=== PATIENT | female | born 1975 | race Two or more races ===

== ENCOUNTER 2020-05-11 09:36 | Outpatient (REF) | payer OTHER, SELFPAY ==
--- NOTE | 2020-05-11 09:43 | FL_ITS ---
EXAMINATION: FLUOROSCOPY BARIUM SWALLOW CLINICAL INFORMATION: Dysphagia COMPARISON: 04/30/2017 TECHNIQUE: Barium swallow with air. FINDINGS: There is no evidence of aspiration. Normal esophageal motility and distention. No mass or mucosal lesions identified. No stricturing is identified. Patient swallowed a barium tablet, which demonstrates normal passage to the stomach. No reflux is seen during the course of the procedure. No hiatal hernia is appreciated. FL/FL barium swallow IMPRESSION: No significant abnormality demonstrated by barium study. Etiology of the patient's symptoms has not been determined by fluoroscopy. Further evaluation with endoscopy as clinically warranted.
== END 2020-05-11 09:37 | disposition home or self-care (01) ==
LOC: HO.XRAY 09:36
PROVIDERS: PCP Internal Medicine; Visit Provider Internal Medicine Endocrinology, Diabetes & Metabolism
DX: R13.19 Other dysphagia (principal)
CPT/HCPCS: 74220

== ENCOUNTER → 2020-05-19 10:17 | Outpatient (BNVA) | payer OTHER, SELFPAY | PROVIDERS: PCP Internal Medicine; Referring Provider Internal Medicine; Visit Provider Nurse Practitioner | DX: Z76.89 Persons encountering health services in other specified circumstances (principal) ==

== ENCOUNTER 2020-06-28 13:43 | Emergency (ER) | payer OTHER, SELFPAY ==
[2020-06-28 14:15] VITALS: BP 103/48; PULSE 106; RESP 16; TEMP 36.8; O2SAT 99; BMI 34.5
[2020-06-28] MEDS: Lidocaine HCl 1 % MPF 5 ML VIAL SUBCUT ×4 (15:02→15:03)
--- NOTE | 2020-06-28 15:32 | ED.SKABFB ---
HPI - Skin/Abscess/Foreign Bdy General Chief complaint: Skin/Abscess/Foreign Body Stated complaint: wound/rash on abd Time Seen by Provider: 06/28/20 14:52 History of Present Illness HPI narrative: Patient complains of abdominal abscess for 3-4 days that is painful and swollen no fever no chills no other complaints Related Data Home Medications Medication Instructions Recorded Confirmed citalopram 40 mg tablet 40 mg PO DAILY 06/27/20 06/27/20 clonidine HCl 0.1 mg tablet mg PO 06/27/20 06/27/20 cyanocobalamin (vitamin B-12) 1,000 mcg PO DAILY 06/27/20 06/27/20 1,000 mcg tablet hydroxyzine HCl 25 mg tablet 25 mg PO BID 06/27/20 06/27/20 montelukast 10 mg tablet 10 mg PO DAILY 06/27/20 06/27/20 zolpidem 10 mg tablet 10 mg PO BEDTIME PRN 06/27/20 06/27/20 Previous Rx's Medication Instructions Recorded [id number] 1 cap PO QID 30 Days #120 cap 06/01/20 24,000-76,000-120,000 unit capsule,delayed rel prednisone 20 mg tablet 20 mg PO DAILY 5 Days #5 tab 06/01/20 sucralfate 100 mg/mL oral 30 ml PO BID #420 ml 06/01/20 suspension cholecalciferol (vitamin D3) 125 125 mcg PO DAILY #30 cap 06/27/20 mcg (5,000 unit) capsule omeprazole 20 mg capsule,delayed 20 mg PO DAILY #30 cap 06/27/20 release clindamycin HCl 300 mg PO Q6H 7 Days #28 cap 06/28/20 doxycycline hyclate 100 mg PO BID 7 Days #14 cap 06/28/20 hydrocodone-acetaminophen 1 tab PO Q6H PRN #10 tab 06/28/20 ibuprofen 600 mg PO Q6H PRN #20 tab 06/28/20 Allergies Allergy/AdvReac Type Severity Reaction Status Date / Time Penicillins [PENICILLINS] Allergy Severe ANAPHYLAXIS Verified 06/27/20 15:11 latex [LATEX] Allergy Intermediate RASH Verified 06/27/20 15:11 pollen Allergy Unknown asthma Uncoded 06/01/20 17:17 Review of Systems Review of Systems: No fever no chills no dizziness no weakness no nausea no vomiting no chest pain no shortness of breath no other rash PMFSH Past Medical History Source: nursing notes reviewed Medical History Shortness of breath Voice hoarseness Surgical History History of esophagogastroduodenoscopy (EGD) Hx of cholecystectomy Hx of colonoscopy Hx of oral surgery (07/23/18) Hx of tubal ligation Family History Family History Father Unknown family medical history Mother Unknown family medical history Social History Social History Alcohol intake: current Alcohol intake frequency: holidays/special occasions only Smoking Status: Former smoker Tobacco Type: Cigarette Advance Directives: No Advance Directives Information Provided: No Physical Exam Vital Signs: Vital Signs: Last Vital Signs Temp 98.3 F 06/28/20 14:15 Pulse 106 H 06/28/20 14:15 Resp 16 06/28/20 14:15 BP 103/48 L 06/28/20 14:15 Pulse Ox 99 06/28/20 14:15 Body Mass Index 34.5 General appearance is comfortable no acute distress Normocephalic atraumatic Neck is supple Respiratory no acute distress The right mid abdomen has a central area of fluctuance redness and tenderness surrounded by erythema and cellulitis, there is no rebound no guarding no other abdominal tenderness Skin no other rash Neuro no focal deficits Course Course Course Narrative: Procedure no right abdominal abscess was cleansed with Betadine Anesthesia was 10 cc of 1% lidocaine Pus was aspirated with an 18 gauge needle then the abscess was incised with an 11 blade with discharge of copious pus and packing was placed Patient tolerated procedure well and bandage was placed and she was discharged Discharge Plan Discharge Clinical Impression: Abscess Cellulitis Qualifiers: Site of cellulitis: trunk Site of cellulitis of trunk: abdominal wall Qualified Code(s): L03.311 - Cellulitis of abdominal wall Additional Instructions: Return to ER in 2 days for packing removal, wound check Return any time for worse pain and swelling, fever, spreading redness, any sign of worsening infection or any concerns Prescriptions: New doxycycline hyclate 100 mg capsule 100 mg PO BID 7 Days Qty: 14 RF: 0 ibuprofen 600 mg tablet 600 mg PO Q6H PRN (Reason: pain) Qty: 20 RF: 0 hydrocodone-acetaminophen 5-325 mg tablet 1 tab PO Q6H PRN (Reason: pain) Qty: 10 RF: 0 clindamycin HCl 300 mg capsule 300 mg PO Q6H 7 Days Qty: 28 RF: 0 No Action cholecalciferol (vitamin D3) 125 mcg (5,000 unit) capsule 125 mcg PO DAILY Qty: 30 RF: 3 omeprazole 20 mg capsule,delayed release(DR/EC) 20 mg PO DAILY Qty: 30 RF: 0 clonidine HCl 0.1 mg tablet PO RF: 0 citalopram 40 mg tablet 40 mg PO DAILY RF: 0 cyanocobalamin (vitamin B-12) 1,000 mcg tablet 1,000 mcg PO DAILY RF: 0 montelukast 10 mg tablet 10 mg PO DAILY RF: 0 hydroxyzine HCl 25 mg tablet 25 mg PO BID RF: 0 zolpidem 10 mg tablet 10 mg PO BEDTIME PRNRF: 0 Creon 24,000-76,000 -120,000 unit capsule,delayed release(DR/EC) 1 cap PO QID 30 Days Qty: 120 RF: 6 sucralfate [Carafate] 100 mg/mL suspension 30 ml PO BID Qty: 420 RF: 6 prednisone 20 mg tablet 20 mg PO DAILY 5 Days Qty: 5 RF: 0
== END 2020-06-28 16:00 | disposition home or self-care (01) ==
PROVIDERS: Emergency Provider Emergency Medicine Emergency Medical Services; PCP Internal Medicine
DX: L03.311 Cellulitis of abdominal wall (principal); Z87.891 Personal history of nicotine dependence; Z79.899 Other long term (current) drug therapy
CPT/HCPCS: 10060; 99283; 99284

== ENCOUNTER → 2020-06-30 08:34 | Outpatient (BNVA) | payer OTHER, SELFPAY | PROVIDERS: PCP Internal Medicine; Visit Provider Nurse Practitioner | DX: Z76.89 Persons encountering health services in other specified circumstances (principal) ==

== ENCOUNTER 2020-06-30 19:47 | Emergency (ER) | payer OTHER, SELFPAY ==
[2020-06-30 20:01] VITALS: BP 94/35; PULSE 86; RESP 16; TEMP 36.9; O2SAT 100; BMI 41.2
[2020-06-30 20:11] VITALS: BP 120/62; PULSE 86
--- NOTE | 2020-06-30 20:16 | ED.SKABFB ---
HPI - Skin/Abscess/Foreign Bdy General Chief complaint: Skin/Abscess/Foreign Body Stated complaint: SUTURE REMOVAL Time Seen by Provider: 06/30/20 20:16 Source: patient Mode of arrival: ambulatory Limitations: no limitations History of Present Illness HPI narrative: on antibiotics, here for packing assessment, pain and erythema improved, 4 more days of antibiotics left MD complaint: abscess/boil Onset (ago): week(s) (2) Tetanus up to date: yes Location: generalized (abdomen) Severity: moderate Quality: aching Pain Consistency: constant Relieving factors: none Exacerbating factors: none Context: recent antibiotic Associated symptoms: denies other symptoms Treatments prior to arrival: other (on antibiotics and s/p ID) Related Data Home Medications Medication Instructions Recorded Confirmed citalopram 40 mg tablet 40 mg PO DAILY 06/27/20 06/27/20 clonidine HCl 0.1 mg tablet mg PO 06/27/20 06/27/20 cyanocobalamin (vitamin B-12) 1,000 mcg PO DAILY 06/27/20 06/27/20 1,000 mcg tablet hydroxyzine HCl 25 mg tablet 25 mg PO BID 06/27/20 06/27/20 montelukast 10 mg tablet 10 mg PO DAILY 06/27/20 06/27/20 zolpidem 10 mg tablet 10 mg PO BEDTIME PRN 06/27/20 06/27/20 Previous Rx's Medication Instructions Recorded [id number] 1 cap PO QID 30 Days #120 cap 06/01/20 24,000-76,000-120,000 unit capsule,delayed rel prednisone 20 mg tablet 20 mg PO DAILY 5 Days #5 tab 06/01/20 sucralfate 100 mg/mL oral 30 ml PO BID #420 ml 06/01/20 suspension cholecalciferol (vitamin D3) 125 125 mcg PO DAILY #30 cap 06/27/20 mcg (5,000 unit) capsule omeprazole 20 mg capsule,delayed 20 mg PO DAILY #30 cap 06/27/20 release clindamycin HCl 300 mg PO Q6H 7 Days #28 cap 06/28/20 doxycycline hyclate 100 mg PO BID 7 Days #14 cap 06/28/20 hydrocodone-acetaminophen 1 tab PO Q6H PRN #10 tab 06/28/20 ibuprofen 600 mg PO Q6H PRN #20 tab 06/28/20 simethicone 180 mg capsule 180 mg PO QID 30 Days #120 cap 06/30/20 Allergies Allergy/AdvReac Type Severity Reaction Status Date / Time Penicillins [PENICILLINS] Allergy Severe ANAPHYLAXIS Verified 06/30/20 08:35 latex [LATEX] Allergy Intermediate RASH Verified 06/30/20 08:35 pollen Allergy Unknown asthma Uncoded 06/01/20 17:17 Review of Systems Review of Systems: Constitutional : No Fever, No Chills ENT/Mouth : No sore throat, No Rhinorrhea Eyes: No Eye Pain, No Swelling, No Redness Cardiovascular : No Chest Pain, No SOB Respiratory : No Cough, No Sputum Gastrointestinal : No Nausea, No Vomiting, No Diarrhea, No abdominal Pain Genitourinary : No Dysuria, No Hematuria Musculoskeletal : No joint pain, No Myalgias, No Joint Swelling Skin : No Skin Lesions, positive skin rash Neuro : No Weakness, No Numbness, No Headache Psych : No Anxiety, No Depression Heme/Lymph: No Bruising, No Bleeding,No Lymphadenopathy Endocrine : No Polyuria, No Polydipsia All other systems reviewed and are negative [facility] Past Medical History Attestation statement: The following information was validated with the patient. Medical History Shortness of breath Voice hoarseness Surgical History History of esophagogastroduodenoscopy (EGD) Hx of cholecystectomy Hx of colonoscopy Hx of oral surgery (07/23/18) Hx of tubal ligation Family History Family History Father Unknown family medical history Mother Unknown family medical history Social History Social History Alcohol intake: current Alcohol intake frequency: holidays/special occasions only Smoking Status: Former smoker Tobacco Type: Cigarette Advance Directives: No Physical Exam Vital Signs: Vital Signs: Last Vital Signs Temp 98.4 F 06/30/20 20:01 Pulse 86 06/30/20 20:11 Resp 16 06/30/20 20:01 BP 120/62 06/30/20 20:11 Pulse Ox 100 06/30/20 20:01 Body Mass Index 41.2 Appearance: Alert. Oriented X3. No acute distress. Eyes: Pupils equal, round and reactive to light. ENT: Pharynx normal. Neck: Normal inspection. Neck supple. CVS: Normal heart rate and rhythm. Pulses normal. Respiratory: No respiratory distress. Breath sounds normal. Abdomen: Soft and R lower abdomen draining ss open area noted with tense wound borders, no purulence, erythema extends from right lower abdomen mild erythema mild warmth 8cm Skin: Skin warm and dry. Normal skin color. Normal skin turgor. Extremities: No lower extremity edema. No calf ttp Neuro: Oriented X 3. No motor deficit. No sensory deficit. MDM - Skin/Abscess/Foreign Bdy MDM Narrative Medical decision making narrative: 44 yo female doing well post I/D of abscess has 4 more days of antibiotics, she denies fevers, states her cellulitis is improving, removed packing and irrigated area given precautions to return Discharge Plan Discharge Clinical Impression: Cellulitis Qualifiers: Site of cellulitis: trunk Site of cellulitis of trunk: abdominal wall Qualified Code(s): L03.311 - Cellulitis of abdominal wall Abscess of skin or subcutaneous tissue Qualifiers: Site of cutaneous abscess: trunk Site of cutaneous abscess of trunk: abdominal wall Qualified Code(s): L02.211 - Cutaneous abscess of abdominal wall Patient Disposition: Home, Self-Care Instructions: Cellulitis (ED), Abscess (ED) Additional Instructions: return to ED for any worsening symptoms or concerns FINISH ALL ANTIBIOTICS Prescriptions: No Action cholecalciferol (vitamin D3) 125 mcg (5,000 unit) capsule 125 mcg PO DAILY Qty: 30 RF: 3 omeprazole 20 mg capsule,delayed release(DR/EC) 20 mg PO DAILY Qty: 30 RF: 0 doxycycline hyclate 100 mg capsule 100 mg PO BID 7 Days Qty: 14 RF: 0 ibuprofen 600 mg tablet 600 mg PO Q6H PRN (Reason: pain) Qty: 20 RF: 0 hydrocodone-acetaminophen 5-325 mg tablet 1 tab PO Q6H PRN (Reason: pain) Qty: 10 RF: 0 clindamycin HCl 300 mg capsule 300 mg PO Q6H 7 Days Qty: 28 RF: 0 clonidine HCl 0.1 mg tablet PO RF: 0 citalopram 40 mg tablet 40 mg PO DAILY RF: 0 cyanocobalamin (vitamin B-12) 1,000 mcg tablet 1,000 mcg PO DAILY RF: 0 montelukast 10 mg tablet 10 mg PO DAILY RF: 0 hydroxyzine HCl 25 mg tablet 25 mg PO BID RF: 0 zolpidem 10 mg tablet 10 mg PO BEDTIME PRNRF: 0 Creon 24,000-76,000 -120,000 unit capsule,delayed release(DR/EC) 1 cap PO QID 30 Days Qty: 120 RF: 6 sucralfate [Carafate] 100 mg/mL suspension 30 ml PO BID Qty: 420 RF: 6 prednisone 20 mg tablet 20 mg PO DAILY 5 Days Qty: 5 RF: 0 simethicone 180 mg capsule 180 mg PO QID 30 Days Qty: 120 RF: 3 Referrals: Amish Pina MD [Physician] - 5 days Gloria Arthur MD [Primary Care Provider] - 3 days Print Language: Montserratian
--- NOTE | 2020-06-30 20:22 | PC.NURSE ---
PT EVALED BY DR KAY. PACKING REMOVED. 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 PT REPORTS REDNESS IS IMPROVED. WOUND IRRIGATED BY PROVIDER. TELFA AND ABD APPLIED.
== END 2020-06-30 20:36 | disposition home or self-care (01) ==
PROVIDERS: Emergency Provider Emergency Medicine; PCP Internal Medicine
DX: Z48.02 Encounter for removal of sutures (principal)
CPT/HCPCS: 99283

== ENCOUNTER → 2020-07-06 11:23 | Outpatient (BNVA) | payer OTHER, SELFPAY | PROVIDERS: PCP Internal Medicine; Visit Provider Surgery | DX: L02.91 Cutaneous abscess, unspecified (principal) | CPT/HCPCS: 99202 ==

== ENCOUNTER → 2020-07-08 12:43 | Outpatient (BNVA) | payer OTHER, SELFPAY | PROVIDERS: PCP Internal Medicine; Visit Provider Surgery | DX: Z48.817 Encounter for surgical aftercare following surgery on the skin and subcutaneous tissue (principal); Z87.2 Personal history of diseases of the skin and subcutaneous tissue | CPT/HCPCS: 99212 ==

== ENCOUNTER → 2020-07-13 14:21 | Outpatient (BNVA) | payer OTHER, SELFPAY | PROVIDERS: PCP Internal Medicine; Visit Provider Surgery | DX: L02.91 Cutaneous abscess, unspecified (principal) | CPT/HCPCS: 99212 ==

== ENCOUNTER → 2020-07-27 09:02 | Outpatient (BNVA) | payer OTHER, SELFPAY | PROVIDERS: PCP Internal Medicine; Visit Provider Surgery | DX: L02.91 Cutaneous abscess, unspecified (principal) | CPT/HCPCS: 99212 ==

== ENCOUNTER → 2020-09-23 08:41 | Outpatient (BNVA) | payer OTHER, SELFPAY | PROVIDERS: PCP Internal Medicine; Visit Provider Internal Medicine Endocrinology, Diabetes & Metabolism ==

== ENCOUNTER 2020-10-04 13:34 | Outpatient (REF) | payer OTHER, SELFPAY ==
--- NOTE | ~2020-10-04 | US_ITS ---
EXAMINATION: US THYROID CLINICAL INFORMATION: Nontoxic multinodular goiter COMPARISON: Previous exam most recent May 2019 TECHNIQUE: Linear transducer grayscale and color Doppler examination with attention to the region of the thyroid. FINDINGS: SIZE: Measurements of the thyroid lobes and nodules are given in sagittal, anteroposterior and transverse dimensions respectively. Right Thyroid Lobe: 4.9 x 1.1 x 1.3 cm, volume 3.7 mL. Parenchyma: The gland echotexture is normal. Thyroid vascularity is normal. Left Thyroid Lobe: 4.7 x 0.9 x 1.6 cm, volume 3.5 mL. Parenchyma: The gland echotexture is normal. Thyroid vascularity is normal. Isthmus: 0.3 cm in maximum AP dimension. Estimated total number of nodules greater than or equal to 1 cm: None. [place] nodules are described as follows: 1. Location: Right mid. Size: 0.5 x 0.2 x 0.4 cm, volume 0.02 mL. Nodule characteristics: Composition: Solid (2). Echogenicity: Isoechoic (1). Shape: Not taller than wide (0). Margins: Smooth (0). Echogenic Foci: None (0). ACR TI-RADS total points: 3 ACR TI-RADS category: 3 There are 2 small cysts seen in the posterior mid left lobe. NODES: No lymphadenopathy is seen in the tissue surrounding the thyroid gland. US/US thyroid IMPRESSION: Small right thyroid nodule. ACR TI-RADS RECOMMENDATION REFERENCE: Ultrasound-guided fine-needle aspiration, followup ultrasound, no further follow up. * TR1 (0 point) and TR 2 (2 points): No FNA or follow up * TR3 (3 points): FNA if more than or equal to 2.5 cm in maximum dimension, followup ultrasound in 1, 3 and 5 years if 1.5 to 2.4 cm in maximum dimension. * TR4 (4-6 points): FNA if more than or equal to 1.5 cm in maximum dimension, followup ultrasound in 1, 2, 3 and 5 years if 1 to 1.4 cm in maximum dimension. * TR5 (more than or equal to 7 points): FNA if more than or equal to 1 cm in maximum dimension, followup ultrasound every year for 5 years if 0.5 to 0.9 cm in maximum dimension. * TR3, TR4 or TR5 nodules that are below the size threshold for follow up receive no follow up.
== END 2020-10-04 13:35 | disposition home or self-care (01) ==
LOC: HO.US 13:34
PROVIDERS: Visit Provider Internal Medicine Endocrinology, Diabetes & Metabolism
DX: E04.2 Nontoxic multinodular goiter (principal)
CPT/HCPCS: 76536

== ENCOUNTER 2020-11-06 18:15 | Emergency (ER) | payer OTHER, SELFPAY ==
[2020-11-06 18:25] VITALS: BP 127/99; PULSE 100; RESP 18; TEMP 36.8; O2SAT 99; BMI 34.7
--- NOTE | 2020-11-06 19:56 | ED.GENADULT ---
HPI - General Adult General Chief complaint: General Medical Stated complaint: joint pain Time Seen by Provider: 11/06/20 19:53 Source: patient Mode of arrival: ambulatory History of Present Illness HPI narrative: 44-year-old female with a past medical history of asthma, B12 deficiency, vitamin-D deficiency, presenting to the ED complaining of bilateral heel pain x 6 days, and right groin pain x3 days. Admits heel pain is radiating up leg to groin, worse on right side. Does report recent heavy lifting. Denies known injury/trauma or falls. Denies fever, chills, numbness, tingling, weakness, dysuria/hematuria, abdominal pain Onset (ago): day(s) Related Data Home Medications Medication Instructions Recorded Confirmed citalopram 40 mg tablet 40 mg PO DAILY 06/27/20 09/23/20 clonidine HCl 0.1 mg tablet mg PO 06/27/20 09/23/20 hydroxyzine HCl 25 mg tablet 25 mg PO BID 06/27/20 09/23/20 montelukast 10 mg tablet 10 mg PO DAILY 06/27/20 09/23/20 zolpidem 10 mg tablet 10 mg PO BEDTIME PRN 06/27/20 09/23/20 prednisone 20 mg tablet 20 mg PO DAILY tab 09/23/20 09/23/20 Previous Rx's Medication Instructions Recorded [id number] 1 cap PO QID 30 Days #120 cap 06/01/20 24,000-76,000-120,000 unit capsule,delayed rel sucralfate 100 mg/mL oral 30 ml PO BID #420 ml 06/01/20 suspension hydrocodone-acetaminophen 1 tab PO Q6H PRN #10 tab 06/28/20 ibuprofen 600 mg PO Q6H PRN #20 tab 06/28/20 simethicone 180 mg capsule 180 mg PO QID 30 Days #120 cap 06/30/20 doxycycline hyclate 100 mg capsule 100 mg PO BID 7 Days #14 cap 07/08/20 silver-hydrocolloid dressing 1.2 1 ea TOPICAL Q OTHER DAY #10 ea 07/13/20 %-3.5 X 4 omeprazole 20 mg capsule,delayed 20 mg PO DAILY #30 cap 07/28/20 release cholecalciferol (vitamin D3) 125 125 mcg PO DAILY 90 Days #90 cap 09/23/20 mcg (5,000 unit) capsule cyanocobalamin (vitamin B-12) 1,000 mcg PO DAILY 90 Days #90 tab 09/23/20 1,000 mcg tablet acetaminophen [Tylenol Extra 500 mg PO Q6H PRN #20 tab 11/06/20 Strength] cyclobenzaprine 5 mg PO Q8H PRN 5 Days #14 tab 11/06/20 lidocaine [Lidoderm] 1 patch TOPICAL DAILY PRN #30 ea 11/06/20 MDD remove after 12 hours naproxen 500 mg PO BID PRN 10 Days #20 tab 11/06/20 Allergies Allergy/AdvReac Type Severity Reaction Status Date / Time Penicillins [PENICILLINS] Allergy Severe ANAPHYLAXIS Verified 11/06/20 18:24 latex [LATEX] Allergy Intermediate RASH Verified 11/06/20 18:24 pollen Allergy Unknown asthma Uncoded 06/01/20 17:17 Review of Systems Review of Systems: Constitutional: No Fever, No Chills Cardiovascular: No Chest Pain, No SOB Gastrointestinal: No Nausea, No Vomiting, No Abdominal pain Genitourinary: No irregular bleeding, No Dysuria, No Urinary Frequency, No Hematuria,No Urgency Musculoskeletal: +joint pain, No Myalgias, No Joint Swelling Skin: No Skin Lesions, No rash Neuro: No Weakness, No Numbness, No Paresthesias Yes all other systems are reviewed and are negative [facility] Past Medical History Attestation statement: The following information was validated with the patient. Medical History (Updated 11/06/20 @ 19:56 by EMMY Archer) Abscess of hip Asthma B12 deficiency Dental root implant present Non-toxic multinodular goiter Shortness of breath Vitamin D deficiency Voice hoarseness Surgical History (Updated 11/06/20 @ 18:30 by Makayla Elkins RN) History of esophagogastroduodenoscopy (EGD) Hx of cholecystectomy Hx of colonoscopy Hx of oral surgery (07/23/18) Hx of tubal ligation S/P cholecystectomy Family History Family History Father Unknown family medical history Mother Unknown family medical history Social History Social History Alcohol intake: current Alcohol intake frequency: holidays/special occasions only Smoking Status: Former smoker Tobacco Type: Cigarette Advance Directives: No Advance Directives Information Provided: Yes Patient : No Physical Exam Vital Signs: Vital Signs: Last Vital Signs Temp 98.2 F 11/06/20 18:25 Pulse 100 11/06/20 18:25 Resp 18 11/06/20 18:25 BP 127/99 H 11/06/20 18:25 Pulse Ox 99 11/06/20 18:25 Body Mass Index 34.7 Const: General: cooperative, healthy appearing, comfortable and no acute distress Orientation/consciousness: patient oriented x3 Limitations: no limitations HENMT: Head: Yes normal to inspection Ears: hearing grossly normal bilaterally General nose exam: Normal external nose present Face and sinus: Yes normal facial exam Eyes: General: appearance normal, both eyes and all related structures EOM: EOMs intact bilaterally Neck: Neck: Yes normal visual inspection Resp: Effort & Inspection: normal respiratory effort Cardio: Rate: regular rate Peripheral pulses: dorsalis pedis present GI: Inspection: Yes normal to inspection Palpation (GI): not soft, Tenderness to palpation present (GI), no guarding and not rigid Skin: Rashes: no rashes Wounds: no wounds Neuro: General: patient oriented x3, tone normal, moves all extremities and no focal motor deficits Gait exam (Neuro): Normal gait present Motor exam (neuro): 5/5 motor strength present throughout Extrem: Other: Bilateral feet without swelling/deformity/erythema. An be intact. Mild tenderness to palpation to bilateral heels. No plantar fascial tenderness. No ankle/knee tenderness. Right groin with tenderness to palpation, no appreciable deformity, tenderness elicited on external rotation of hip General: Yes normal to inspection Medical Decision Making MDM Narrative Medical decision making narrative: 44-year-old female with a past medical history of asthma, B12 deficiency, vitamin-D deficiency, presenting to the ED complaining of bilateral heel pain x 6 days, and right groin pain x3 days. On exam VSS, NAD/well-appearing, physical exam as above. Groin pain consistent with MSK pain/strain. Heel pain concerning for possible bone spur or overuse injury. Unlikely fracture/dislocation. No evidence of active infection Plan: Toradol, PCP/podiatry follow-up Discharge Plan Discharge Clinical Impression: Bilateral foot pain Groin strain Qualifiers: Encounter type: initial encounter Laterality: right Qualified Code(s): S76.211A - Strain of adductor muscle, fascia and tendon of right thigh, initial encounter Patient Disposition: Home, Self-Care Instructions: Groin Strain (ED), Arthralgia (ED) Additional Instructions: Your pain is likely musculoskeletal Flexeril is a muscle relaxer, take at night as it makes you drowsy, do not drive, drink alcohol, or operate machinery while taking it Naproxen as an anti-inflammatory / pain medication, take with food Lidoderm patches are numbing patches, apply to painful area In addition take Tylenol at home If symptoms persist or worsen, pain becomes unbearable, you developed urinary retention or incontinence, or weakness return to the ED You should follow-up with Podiatry. If her symptoms persist or worsen, you have fever, abdominal pain, nausea or vomiting please return to the ED Es probable que siddiqi dolor sea musculoesquel?james Flexeril es un relajante muscular, t?jane por la noche ya que le produce somnolencia, no conduzca, no breanna alcohol ni utilice maquinaria mientras lo migdalia. Naproxeno cassie medicamento antiinflamatorio / analg?sico, macario con alimentos. Los parches de Lidoderm son parches que adormecen, se aplican al ?silvio dolorida Adem?s, tome Tylenol en casa. Si los s?ntomas persisten o empeoran, el dolor se vuelve insoportable, desarroll? retenci?n urinaria o incontinencia o debilidad, regrese al servicio de urgencias Debe hacer un seguimiento con Podolog?a. Si fran s?ntomas persisten o empeoran, tiene fiebre, dolor abdominal, n?useas o v?mitos, vuelva al servicio de urgencias. Prescriptions: New acetaminophen [Tylenol Extra Strength] 500 mg tablet 500 mg PO Q6H PRN (Reason: pain or fever) Qty: 20 RF: 0 lidocaine [Lidoderm] 5 % adhesive patch,medicated 1 patch topical DAILY MDD remove after 12 hours PRN (Reason: pain) Qty: 30 RF: 0 naproxen 500 mg tablet 500 mg PO BID PRN (Reason: pain) 10 Days Qty: 20 RF: 0 cyclobenzaprine 5 mg tablet 5 mg PO Q8H PRN (Reason: pain (scale score 7-10)) 5 Days Qty: 14 RF: 0 No Action omeprazole 20 mg capsule,delayed release(DR/EC) 20 mg PO DAILY Qty: 30 RF: 1 ibuprofen 600 mg tablet 600 mg PO Q6H PRN (Reason: pain) Qty: 20 RF: 0 hydrocodone-acetaminophen 5-325 mg tablet 1 tab PO Q6H PRN (Reason: pain) Qty: 10 RF: 0 clonidine HCl 0.1 mg tablet PO RF: 0 citalopram 40 mg tablet 40 mg PO DAILY RF: 0 montelukast 10 mg tablet 10 mg PO DAILY RF: 0 hydroxyzine HCl 25 mg tablet 25 mg PO BID RF: 0 zolpidem 10 mg tablet 10 mg PO BEDTIME PRNRF: 0 Creon 24,000-76,000 -120,000 unit capsule,delayed release(DR/EC) 1 cap PO QID 30 Days Qty: 120 RF: 6 sucralfate [Carafate] 100 mg/mL suspension 30 ml PO BID Qty: 420 RF: 6 doxycycline hyclate 100 mg capsule 100 mg PO BID 7 Days Qty: 14 RF: 0 prednisone 20 mg tablet 20 mg PO DAILY RF: 0 cyanocobalamin (vitamin B-12) 1,000 mcg tablet 1,000 mcg PO DAILY 90 Days Qty: 90 RF: 1 cholecalciferol (vitamin D3) 125 mcg (5,000 unit) capsule 125 mcg PO DAILY 90 Days Qty: 90 RF: 1 simethicone 180 mg capsule 180 mg PO QID 30 Days Qty: 120 RF: 3 Aquacel-AG 1.2-3.5 X 4 %- bandage 1 ea topical Q OTHER DAY Qty: 10 RF: 0 Referrals: Amish Faustin [Physician] - 1 week Physician,Unknown [Primary Care Provider] - 2 days Print Language: Nicaraguan
[2020-11-06] MEDS: Ketorolac Tromethamine 30 MG/ML VIAL IM (20:07)
== END 2020-11-06 20:23 | disposition home or self-care (01) ==
PROVIDERS: Emergency Provider Emergency Medicine
DX: S76.211A Strain of adductor muscle, fascia and tendon of right thigh, initial encounter (principal); M79.672 Pain in left foot; M79.671 Pain in right foot; R10.30 Lower abdominal pain, unspecified; X50.0XXA Overexertion from strenuous movement or load, initial encounter; X50.3XXA Overexertion from repetitive movements, initial encounter; X50.9XXA Other and unspecified overexertion or strenuous movements or postures, initial encounter; Y93.9 Activity, unspecified; Y92.9 Unspecified place or not applicable; Y99.9 Unspecified external cause status; Z79.899 Other long term (current) drug therapy; Z87.891 Personal history of nicotine dependence
CPT/HCPCS: 96372; 99284; J1885

== ENCOUNTER 2020-12-29 09:18 | Outpatient (REF) | payer OTHER, SELFPAY ==
[2020-12-29 10:31] LABS: Alanine Aminotransferase 40 U/L (0-31); Albumin Level 3.9 g/dL (3.5-5.0); Alkaline Phosphatase 128 U/L (39-117); Anion Gap 11 (12-20); Aspartate Amino Transferase 40 U/L (5-31); Bilirubin Total 0.3 mg/dL (0.0-1.0); Blood Urea Nitrogen 10 mg/dL (9-16); Calcium 8.8 mg/dL (8.4-10.2); Carbon Dioxide 24 mmol/L (22-29); Chloride 106 mmol/L (96-108); Cholesterol 190 mg/dL; Estimated Glomerular Filt Rate > 60; Glucose Fasting 113 mg/dL (60-99); HDL Cholesterol 44 mg/dL; LDL Cholesterol Calculated 107 mg/dl; Potassium 4.4 mmol/L (3.3-5.1); Sodium 137 mmol/L (135-145); Total Protein 6.5 g/dL (6.5-8.0); Triglycerides 196 mg/dL
[2020-12-29 10:51] LABS: Free T4 (Free Thyroxine) 0.81 ng/dL (0.71-1.85); Vitamin D 25-OH Total 28.9 ng/mL (>30)
[2020-12-29 10:55] LABS: Thyroid Stimulating Hormone 2.44 uIU/mL (0.32-4.0)
[2020-12-29 11:17] LABS: Vitamin B12 232 pg/mL (200-900)
== END 2020-12-29 09:19 | disposition home or self-care (01) ==
LOC: HO.LAB 09:18
PROVIDERS: Absent Provider Internal Medicine; PCP Internal Medicine; Visit Provider Internal Medicine Endocrinology, Diabetes & Metabolism
DX: E66.9 Obesity, unspecified (principal); E04.2 Nontoxic multinodular goiter; E53.8 Deficiency of other specified B group vitamins; E55.9 Vitamin D deficiency, unspecified
CPT/HCPCS: 36415; 80053; 80061; 82306; 82607; 84439; 84443

== ENCOUNTER 2021-01-25 14:06 | Emergency (ER) | payer OTHER, SELFPAY ==
--- NOTE | ~2021-01-25 | CT_ITS ---
EXAMINATION: CT HEAD WITHOUT CONTRAST CLINICAL INFORMATION: Headache COMPARISON: 12/26/2016 TECHNIQUE: Contiguous axial imaging was performed from the skull base to vertex without intravenous administration of contrast. This CT examination was performed using dose optimization techniques as appropriate, variously including the following: *Automated exposure control *Adjustment of mA and/or kV according to patient size (this includes techniques or standardized protocols for targeted exams where dose is matched to indication/reason for exam; i.e. extremities or head) *Use of iterative reconstruction technique DLP: 682 mGy-cm FINDINGS: There is no evidence of acute intracranial hemorrhage or territorial infarction. No abnormal mass effect or midline shift is seen. [place] to white matter differentiation is well preserved. No extra-axial fluid collections are identified. The ventricles are normal in size. There is no abnormal attenuation within the brain parenchyma. The osseous structures and soft tissues are normal. The mastoid air cells and visualized portions of the paranasal sinuses are well aerated. CT/CT head/brain wo con IMPRESSION: No acute intracranial pathology.
[2021-01-25 14:19] VITALS: BP 109/49; PULSE 84; RESP 18; TEMP 36.7; O2SAT 99; BMI 35.5
--- NOTE | 2021-01-25 16:26 | ED_ITS ---
HPI - General Adult General Chief complaint: General Medical Stated complaint: pain on right side of face Time Seen by Provider: 01/25/21 16:26 Related Data Home Medications Medication Instructions Recorded Confirmed citalopram 40 mg tablet 40 mg PO DAILY 06/27/20 11/29/20 clonidine HCl 0.1 mg tablet mg PO 06/27/20 11/29/20 hydroxyzine HCl 25 mg tablet 25 mg PO BID 06/27/20 11/29/20 zolpidem 10 mg tablet 10 mg PO BEDTIME PRN 06/27/20 11/29/20 Previous Rx's Medication Instructions Recorded laremn-kfdkivnc-jrsmusi 1 cap PO QID 30 Days #120 cap 06/01/20 24,000-76,000-120,000 unit capsule,delayed rel (Creon) sucralfate 100 mg/mL oral 30 ml PO BID #420 ml 06/01/20 suspension (Carafate) ibuprofen 600 mg tablet 600 mg PO Q6H PRN #20 tab 06/28/20 simethicone 180 mg capsule 180 mg PO QID 30 Days #120 cap 06/30/20 cholecalciferol (vitamin D3) 125 125 mcg PO DAILY 90 Days #90 cap 09/23/20 mcg (5,000 unit) capsule cyanocobalamin (vitamin B-12) 1,000 mcg PO DAILY 90 Days #90 tab 09/23/20 1,000 mcg tablet acetaminophen 500 mg tablet 500 mg PO Q6H PRN #20 tab 11/06/20 (Tylenol Extra Strength) lidocaine 5 % topical patch 1 patch TOPICAL DAILY PRN #30 ea 11/06/20 (Lidoderm) MDD remove after 12 hours naproxen 500 mg tablet 500 mg PO BID PRN 10 Days #20 tab 11/06/20 sulfamethoxazole 800 1 tab PO Q12H 10 Days #20 tab 11/29/20 mg-trimethoprim 160 mg tablet (Bactrim DS) montelukast 10 mg tablet 10 mg PO DAILY #30 tab 12/06/20 omeprazole 20 mg capsule,delayed 20 mg PO DAILY #30 cap 01/10/21 release albuterol sulfate 90 mcg/actuation 1 inh INHALATION Q4-6H PRN 30 Days 01/11/21 breath activated powder inhaler #1 ea (ProAir RespiClick) Allergies Allergy/AdvReac Type Severity Reaction Status Date / Time Penicillins [PENICILLINS] Allergy Severe ANAPHYLAXIS Verified 01/25/21 14:19 latex [LATEX] Allergy Intermediate RASH Verified 01/25/21 14:19 pollen Allergy Intermediate asthma Uncoded 11/29/20 14:43 [facility] Past Medical History Medical History Abscess Abscess of hip Asthma B12 deficiency Dental root implant present Foot pain Non-toxic multinodular goiter Obese Shortness of breath Vitamin D deficiency Voice hoarseness Surgical History History of esophagogastroduodenoscopy (EGD) Hx of cholecystectomy Hx of colonoscopy Hx of oral surgery (07/23/18) Hx of tubal ligation S/P cholecystectomy Family History Family History Father Unknown family medical history Mother Unknown family medical history Social History Social History Alcohol intake: current Alcohol intake frequency: holidays/special occasions only Patient Tobacco Use Status: Former Tobacco user Tobacco use type: Cigarette Second Hand Smoke Exposure: No Advance Directives: No Advance Directives Information Provided: Yes Patient : No Physical Exam Vital Signs: Vital Signs: Last Vital Signs Temp 98.0 F 01/25/21 14:19 Pulse 84 01/25/21 14:19 Resp 18 01/25/21 14:19 BP 109/49 L 01/25/21 14:19 Pulse Ox 99 01/25/21 14:19 Body Mass Index 35.5 Discharge Plan Discharge Prescriptions: No Action montelukast 10 mg tablet 10 mg PO DAILY Qty: 30 RF: 6 omeprazole 20 mg capsule,delayed release(DR/EC) 20 mg PO DAILY Qty: 30 RF: 1 ProAir RespiClick 90 mcg/actuation aerosol powdr breath activated 1 inh inhalation Q4-6H PRN (Reason: shortness of breath or wheezing) 30 Days Qty: 1 RF: 2 ibuprofen 600 mg tablet 600 mg PO Q6H PRN (Reason: pain) Qty: 20 RF: 0 acetaminophen [Tylenol Extra Strength] 500 mg tablet 500 mg PO Q6H PRN (Reason: pain or fever) Qty: 20 RF: 0 lidocaine [Lidoderm] 5 % adhesive patch,medicated 1 patch topical DAILY MDD remove after 12 hours PRN (Reason: pain) Qty: 30 RF: 0 naproxen 500 mg tablet 500 mg PO BID PRN (Reason: pain) 10 Days Qty: 20 RF: 0 clonidine HCl 0.1 mg tablet PO RF: 0 citalopram 40 mg tablet 40 mg PO DAILY RF: 0 hydroxyzine HCl 25 mg tablet 25 mg PO BID RF: 0 zolpidem 10 mg tablet 10 mg PO BEDTIME PRNRF: 0 Creon 24,000-76,000 -120,000 unit capsule,delayed release(DR/EC) 1 cap PO QID 30 Days Qty: 120 RF: 6 sucralfate [Carafate] 100 mg/mL suspension 30 ml PO BID Qty: 420 RF: 6 sulfamethoxazole-trimethoprim [Bactrim DS] 800-160 mg tablet 1 tab PO Q12H 10 Days Qty: 20 RF: 0 cyanocobalamin (vitamin B-12) 1,000 mcg tablet 1,000 mcg PO DAILY 90 Days Qty: 90 RF: 1 cholecalciferol (vitamin D3) 125 mcg (5,000 unit) capsule 125 mcg PO DAILY 90 Days Qty: 90 RF: 1 simethicone 180 mg capsule 180 mg PO QID 30 Days Qty: 120 RF: 3
--- NOTE | 2021-01-25 16:41 | ED.GENADULT ---
HPI - General Adult General Chief complaint: General Medical Stated complaint: pain on right side of face Time Seen by Provider: 01/25/21 16:26 History of Present Illness HPI narrative: Patient is a 45-year-old female presented today with having headaches mainly over the left side. Worsen with light. Worsen with sound. Similar to previous bouts of migraine. Patient also complained of some changes in vision. Some pain to the face. Patient denies any diaphoresis. No coughing or congestion or upper respiratory symptoms. Related Data Home Medications Medication Instructions Recorded Confirmed citalopram 40 mg tablet 40 mg PO DAILY 06/27/20 11/29/20 clonidine HCl 0.1 mg tablet mg PO 06/27/20 11/29/20 hydroxyzine HCl 25 mg tablet 25 mg PO BID 06/27/20 11/29/20 zolpidem 10 mg tablet 10 mg PO BEDTIME PRN 06/27/20 11/29/20 Previous Rx's Medication Instructions Recorded yxiaez-itxlfsaf-nofmpyh 1 cap PO QID 30 Days #120 cap 06/01/20 24,000-76,000-120,000 unit capsule,delayed rel (Creon) sucralfate 100 mg/mL oral 30 ml PO BID #420 ml 06/01/20 suspension (Carafate) ibuprofen 600 mg tablet 600 mg PO Q6H PRN #20 tab 06/28/20 simethicone 180 mg capsule 180 mg PO QID 30 Days #120 cap 06/30/20 cholecalciferol (vitamin D3) 125 125 mcg PO DAILY 90 Days #90 cap 09/23/20 mcg (5,000 unit) capsule cyanocobalamin (vitamin B-12) 1,000 mcg PO DAILY 90 Days #90 tab 09/23/20 1,000 mcg tablet acetaminophen 500 mg tablet 500 mg PO Q6H PRN #20 tab 11/06/20 (Tylenol Extra Strength) lidocaine 5 % topical patch 1 patch TOPICAL DAILY PRN #30 ea 11/06/20 (Lidoderm) MDD remove after 12 hours naproxen 500 mg tablet 500 mg PO BID PRN 10 Days #20 tab 11/06/20 sulfamethoxazole 800 1 tab PO Q12H 10 Days #20 tab 11/29/20 mg-trimethoprim 160 mg tablet (Bactrim DS) montelukast 10 mg tablet 10 mg PO DAILY #30 tab 12/06/20 omeprazole 20 mg capsule,delayed 20 mg PO DAILY #30 cap 01/10/21 release albuterol sulfate 90 mcg/actuation 1 inh INHALATION Q4-6H PRN 30 Days 01/11/21 breath activated powder inhaler #1 ea (ProAir RespiClick) ibuprofen 400 mg tablet 400 mg PO Q6H PRN #20 tab 01/25/21 ondansetron HCl 4 mg tablet 4 mg PO Q8H PRN #10 tab 01/25/21 (Zofran) Allergies Allergy/AdvReac Type Severity Reaction Status Date / Time Penicillins [PENICILLINS] Allergy Severe ANAPHYLAXIS Verified 01/25/21 14:19 latex [LATEX] Allergy Intermediate RASH Verified 01/25/21 14:19 pollen Allergy Intermediate asthma Uncoded 11/29/20 14:43 Review of Systems Review of Systems: No fever no chills no chest pain or shortness of breath no diaphoresis no focal weakness. No neck pain. Yes all other systems are reviewed and are negative PMFSH Past Medical History Attestation statement: The following information was validated with the patient. Medical History Abscess Abscess of hip Asthma B12 deficiency Dental root implant present Foot pain Non-toxic multinodular goiter Obese Shortness of breath Vitamin D deficiency Voice hoarseness Surgical History History of esophagogastroduodenoscopy (EGD) Hx of cholecystectomy Hx of colonoscopy Hx of oral surgery (07/23/18) Hx of tubal ligation S/P cholecystectomy Family History Family History Father Unknown family medical history Mother Unknown family medical history Social History Social History Alcohol intake: current Alcohol intake frequency: holidays/special occasions only Patient Tobacco Use Status: Former Tobacco user Tobacco use type: Cigarette Second Hand Smoke Exposure: No Advance Directives: No Advance Directives Information Provided: Yes Patient : No Physical Exam Vital Signs: Vital Signs: Last Vital Signs Temp 98.3 F 01/25/21 17:22 Pulse 74 01/25/21 17:22 Resp 18 01/25/21 17:22 BP 105/50 L 01/25/21 17:22 Pulse Ox 98 01/25/21 17:22 Body Mass Index 35.5 Appearance: Alert. Oriented X3. No acute distress. Eyes: Pupils equal, round and reactive to light. ENT: Pharynx normal. Neck: Normal inspection. Neck supple. No lymph nodes noted. No crepitus CVS: Normal heart rate and rhythm. Pulses normal. Normal S1 and S2 Respiratory: No respiratory distress. Breath sounds normal. No Wheezing. No rales Abdomen: Soft and nontender. No rigidity. No distention. good BS x4 Skin: Skin warm and dry. Normal skin color. Normal skin turgor. Extremities: No lower extremity edema. Neurovascular intact to all extremities. No Lacerations. No Rash Neuro: Oriented X 3. No motor deficit. No sensory deficit. Moving all extermities. No slurred speech Medical Decision Making MDM Narrative Medical decision making narrative: Patient's headache improved with migraine treatment. Reglan, Benadryl, Toradol. Neurologically intact. No fever no chills. Neck is supple. No evidence for meningitis. History of migraine headache. Symptoms not consistent with having subarachnoid hemorrhage. Not consistent with meningitis. Will discharge patient home close follow-up outpatient basis. Lab Data Result diagrams: 01/25/21 17:50 01/25/21 17:50 Labs: Lab Results 01/25/21 01/25/21 01/25/21 Range/Units 17:50 17:50 17:50 WBC 7.2 (4.8-10.8) X10*3/uL RBC 4.33 (4.20-5.50) X10*6/uL Hgb 13.5 (12.0-16.0) g/dl Hct 39.5 (37-47) % MCV 91.2 (80-98) fL MCH 31.2 (27.0-33.0) pg MCHC 34.2 (31.0-35.0) g/dl RDW 11.9 (11.0-16.0) % Plt Count 301 (160-400) X10*3/uL MPV 10.8 (9.4-12.3) fL Immature Gran % (Auto) 0.4 (0.0-0.4) % Neut % (Auto) 56.4 (45-73) % Lymph % (Auto) 31.3 (20-40) % [place] % (Auto) 9.1 (2-11) % Eos % (Auto) 2.4 (0-4) % Baso % (Auto) 0.4 (0-2) % Lymph # (Auto) 2.3 (1.2-4.9) X10*3/uL [place] # (Auto) 0.7 (0.1-1.2) X10*3/uL Eos # (Auto) 0.2 (0.0-0.4) X10*3/uL Baso # (Auto) 0.0 (0.0-0.2) X10*3/uL Abs Immat Gran (auto) 0.03 (0.00-0.03) X10*3/uL Absolute Neuts (auto) 4.1 (2.0-8.3) X10*3/uL Absolute Nucleated RBC 0.000 (0.0-0.012) X10*3/uL Nucleated RBC % (auto) 0.0 (0.0-0.2) /100WBC Sodium 142 (135-145) mmol/L Potassium 4.8 (3.3-5.1) mmol/L Chloride 104 (96-108) mmol/L Carbon Dioxide 27 (22-29) mmol/L Anion Gap 16 (12-20) BUN 7 L (9-16) mg/dL Creatinine 0.72 (0.5-1.4) mg/dL Estim Creat Clear Calc 88.1 Estimated GFR > 60 Random Glucose 110 (60-115) mg/dL Calcium 10.2 D (8.4-10.2) mg/dL COVID-19 (MESSI) Negative (Negative) COVID-19 Clin Com See Note Discharge Plan Discharge Clinical Impression: Migraine Patient Disposition: Home, Self-Care Instructions: Migraine Headache (ED) Prescriptions: New ondansetron HCl [Zofran] 4 mg tablet 4 mg PO Q8H PRN (Reason: nausea and vomiting) Qty: 10 RF: 0 ibuprofen 400 mg tablet 400 mg PO Q6H PRN (Reason: pain) Qty: 20 RF: 0 No Action montelukast 10 mg tablet 10 mg PO DAILY Qty: 30 RF: 6 omeprazole 20 mg capsule,delayed release(DR/EC) 20 mg PO DAILY Qty: 30 RF: 1 ProAir RespiClick 90 mcg/actuation aerosol powdr breath activated 1 inh inhalation Q4-6H PRN (Reason: shortness of breath or wheezing) 30 Days Qty: 1 RF: 2 ibuprofen 600 mg tablet 600 mg PO Q6H PRN (Reason: pain) Qty: 20 RF: 0 acetaminophen [Tylenol Extra Strength] 500 mg tablet 500 mg PO Q6H PRN (Reason: pain or fever) Qty: 20 RF: 0 lidocaine [Lidoderm] 5 % adhesive patch,medicated 1 patch topical DAILY MDD remove after 12 hours PRN (Reason: pain) Qty: 30 RF: 0 naproxen 500 mg tablet 500 mg PO BID PRN (Reason: pain) 10 Days Qty: 20 RF: 0 clonidine HCl 0.1 mg tablet PO RF: 0 citalopram 40 mg tablet 40 mg PO DAILY RF: 0 hydroxyzine HCl 25 mg tablet 25 mg PO BID RF: 0 zolpidem 10 mg tablet 10 mg PO BEDTIME PRNRF: 0 Creon 24,000-76,000 -120,000 unit capsule,delayed release(DR/EC) 1 cap PO QID 30 Days Qty: 120 RF: 6 sucralfate [Carafate] 100 mg/mL suspension 30 ml PO BID Qty: 420 RF: 6 sulfamethoxazole-trimethoprim [Bactrim DS] 800-160 mg tablet 1 tab PO Q12H 10 Days Qty: 20 RF: 0 cyanocobalamin (vitamin B-12) 1,000 mcg tablet 1,000 mcg PO DAILY 90 Days Qty: 90 RF: 1 cholecalciferol (vitamin D3) 125 mcg (5,000 unit) capsule 125 mcg PO DAILY 90 Days Qty: 90 RF: 1 simethicone 180 mg capsule 180 mg PO QID 30 Days Qty: 120 RF: 3 Referrals: Gloria Arthur MD [Primary Care Provider] - 2 days
[2021-01-25 17:22] VITALS: BP 105/50; PULSE 74; RESP 18; TEMP 36.8; O2SAT 98
[2021-01-25 18:05] LABS: MANUAL DIFF FLAG NO
[2021-01-25] MEDS: 0.9 % Sodium Chloride 1,000 ML 999 ML IV (18:09)
[2021-01-25] MEDS: Metoclopramide HCl 10 MG/2 ML VIAL IVPUSH (18:09)
[2021-01-25] MEDS: diphenhydrAMINE HCL 50 MG/ML VIAL IVPUSH (18:09)
[2021-01-25] MEDS: Ketorolac Tromethamine 15 MG/ML VIAL IVPUSH (18:09)
[2021-01-25 18:19] LABS: COVID-19 Test Negative (Negative)
[2021-01-25 18:27] LABS: Basophils Percent Auto 0.4 % (0-2); Eosinophils Absolute Auto 0.2 X10*3/uL (0.0-0.4); Eosinophils Percent Auto 2.4 % (0-4); Hematocrit 39.5 % (37-47); Hemoglobin 13.5 g/dl (12.0-16.0); Imm Gran Abs Auto 0.03 X10*3/uL (0.00-0.03); Imm Gran Pct Auto 0.4 % (0.0-0.4); Lymphocytes Absolute Auto 2.3 X10*3/uL (1.2-4.9); Lymphocytes Percent Auto 31.3 % (20-40); Mean Corpuscular HGB Conc 34.2 g/dl (31.0-35.0); Mean Corpuscular Hemoglobin 31.2 pg (27.0-33.0); Mean Corpuscular Volume 91.2 fL (80-98); Mean Platelet Volume 10.8 fL (9.4-12.3); Monocytes Absolute Auto 0.7 X10*3/uL (0.1-1.2); Monocytes Percent Auto 9.1 % (2-11); Neutrophils Absolute Auto 4.1 X10*3/uL (2.0-8.3); Neutrophils Percent Auto 56.4 % (45-73); Platelet Count 301 X10*3/uL (160-400); Red Blood Count 4.33 X10*6/uL (4.20-5.50); Red Cell Distribution Width 11.9 % (11.0-16.0); White Blood Count 7.2 X10*3/uL (4.8-10.8)
[2021-01-25 18:32] LABS: Anion Gap 16 (12-20); Blood Urea Nitrogen 7 mg/dL (9-16); Calcium 10.2 mg/dL (8.4-10.2); Carbon Dioxide 27 mmol/L (22-29); Chloride 104 mmol/L (96-108); Creatinine Clr Calc Pharmacy 88.1; Estimated Glomerular Filt Rate > 60; Glucose Random 110 mg/dL (60-115); Potassium 4.8 mmol/L (3.3-5.1); Sodium 142 mmol/L (135-145)
== END 2021-01-25 20:05 | disposition home or self-care (01) ==
PROVIDERS: Emergency Provider Emergency Medicine Emergency Medical Services; PCP Internal Medicine
DX: G43.909 Migraine, unspecified, not intractable, without status migrainosus (principal); Z20.822 Contact with and (suspected) exposure to COVID-19
CPT/HCPCS: 36415; 70450; 80048; 85025; 87635; 96361; 96374; 96375; 99284; J1200; J1885; J2765

== ENCOUNTER → 2021-04-17 13:34 | Outpatient (BNVA) | payer OTHER, SELFPAY | PROVIDERS: PCP Internal Medicine; Referring Provider Internal Medicine; Visit Provider Nurse Practitioner | DX: K21.9 Gastro-esophageal reflux disease without esophagitis (principal); K90.89 Other intestinal malabsorption; R14.0 Abdominal distension (gaseous) | CPT/HCPCS: 99212 ==

== ENCOUNTER 2021-05-02 13:52 | Outpatient (REF) | payer OTHER, SELFPAY ==
--- NOTE | ~2021-05-02 | MM_ITS ---
EXAMINATION: MM SCREENING DIGITAL BREAST TOMOSYNTHESIS, BILATERAL CLINICAL INFORMATION: Screening. Asymptomatic. The lifetime risk of breast cancer based on the Tyrer-Cuzick Model is 7%. COMPARISON: Mammography: 05/19/2019, 04/22/2018, 07/10/2016, 05/02/2015 TECHNIQUE: Digital breast tomosynthesis is performed in both the craniocaudal and mediolateral oblique views along with computer-aided detection (CAD). Synthesized 2D images are generated from the tomosynthesis. FINDINGS: There are scattered areas of fibroglandular density (ACR BI-RADS breast composition Category b). There are no significant masses, abnormal calcifications, or other abnormalities. Parenchymal pattern is similar to prior studies. Scattered bilateral round, rim, and dermal calcifications are again scattered both breasts predominantly lower inner quadrants. No significant changes. MM/MM tomosynthesis screening BI IMPRESSION: No mammographic evidence of malignancy. ASSESSMENT: BI-RADS 2: Benign RECOMMENDATION: Routine annual mammography screening. This patient's information was entered into a reminder system with a target due date for their next mammogram.
== END 2021-05-02 13:53 | disposition home or self-care (01) ==
LOC: HO.MAMMO 13:52
PROVIDERS: Visit Provider Internal Medicine
DX: Z12.31 Encounter for screening mammogram for malignant neoplasm of breast (principal)
CPT/HCPCS: 77063; 77067

== ENCOUNTER 2021-08-14 10:57 | Outpatient (REF) | payer OTHER, SELFPAY ==
[2021-08-14 13:11] LABS: Folate 3.1 ng/mL (> or = 4.0); Vitamin B12 440 pg/mL (200-900)
[2021-08-18 13:03] LABS: Vitamin D 25-OH, D2 <4 ng/mL; Vitamin D 25-OH, D3 38 ng/mL; Vitamin D 25-OH, Total 38 ng/mL (30-100)
== END 2021-08-14 10:58 | disposition home or self-care (01) ==
LOC: HO.LAB 10:57
PROVIDERS: PCP Internal Medicine; Visit Provider Internal Medicine
DX: E55.9 Vitamin D deficiency, unspecified (principal); E53.8 Deficiency of other specified B group vitamins
CPT/HCPCS: 36415; 82306; 82607; 82746

== ENCOUNTER 2021-09-01 13:13 | Outpatient (REF) | payer OTHER, SELFPAY ==
[2021-09-01 15:11] LABS: Vitamin D 25-OH Total 52.9 ng/mL (>30)
[2021-09-01 15:12] LABS: Free T4 (Free Thyroxine) 1.07 ng/dL (0.71-1.85); Thyroid Stimulating Hormone 1.66 uIU/mL (0.32-4.0)
[2021-09-01 15:27] LABS: Vitamin B12 396 pg/mL (200-900)
== END 2021-09-01 13:14 | disposition home or self-care (01) ==
LOC: HO.LAB 13:13
PROVIDERS: Internal Medicine Endocrinology, Diabetes & Metabolism; PCP Internal Medicine; Visit Provider Internal Medicine Endocrinology, Diabetes & Metabolism
DX: E04.2 Nontoxic multinodular goiter (principal); E55.9 Vitamin D deficiency, unspecified
CPT/HCPCS: 36415; 82306; 82607; 84439; 84443; 99212

== ENCOUNTER 2021-10-04 09:57 | Outpatient (REF) | payer OTHER, SELFPAY ==
--- NOTE | 2021-10-04 10:00 | EMG_ITS ---
This is a 45-year-old woman with right upper extremity pain and numbness. PHYSICAL EXAMINATION: She is alert and oriented with normal intellectual functions. Cranial nerves II through XII are normal. Muscle tone and strength are normal in all 4 extremities. Deep tendon reflexes symmetrical, 2+ plantar responses are flexor. No Tinel or Phalen sign. IMPRESSION: Rule out carpal tunnel syndrome. Nerve conduction EMG study: Normal electrodiagnostic study of the right upper extremity with no evidence of carpal tunnel syndrome or nerve entrapment. Normal EMG of the right C5-T1 innervated muscles. MD PATRICIA Zimmerman/MALINDA / [id number]
== END 2021-10-04 09:58 | disposition home or self-care (01) ==
LOC: HO.NEURO 09:57
PROVIDERS: PCP Internal Medicine; Visit Provider Internal Medicine
DX: R20.0 Anesthesia of skin (principal)
CPT/HCPCS: 95885; 95910

== ENCOUNTER 2022-01-31 15:04 | Outpatient (REF) | payer OTHER, SELFPAY ==
[2022-01-31 18:30] LABS: CT PCR NOT DETECTED (Not Detect.); NG PCR NOT DETECTED (Not Detect.)
[2022-02-03 14:37] LABS: HPV mRNA E6/E7 rflx Not Detected (Not Detected)
== END 2022-01-31 15:05 | disposition home or self-care (01) ==
LOC: HO.LAB 15:04
PROVIDERS: Visit Provider Advanced Practice Midwife
DX: Z01.419 Encounter for gynecological examination (general) (routine) without abnormal findings (principal); Z11.51 Encounter for screening for human papillomavirus (HPV); Z11.3 Encounter for screening for infections with a predominantly sexual mode of transmission
CPT/HCPCS: 87491; 87591; 87624; 88142

== ENCOUNTER → 2022-02-21 11:19 | Outpatient (BNVA) | payer OTHER, SELFPAY | PROVIDERS: PCP Internal Medicine; Visit Provider Advanced Practice Midwife | DX: Z30.433 Encounter for removal and reinsertion of intrauterine contraceptive device (principal); Z32.02 Encounter for pregnancy test, result negative | CPT/HCPCS: 58300; 58301; 81025; J7298 ==

== ENCOUNTER 2022-04-05 13:47 | Outpatient (REF) | payer OTHER, SELFPAY ==
[2022-04-06 10:27] LABS: BV Int Neg Control Negative (Negative); BV Int Pos Control Positive (Positive)
== END 2022-04-05 13:48 | disposition home or self-care (01) ==
LOC: HO.LNP 13:47
PROVIDERS: Visit Provider Advanced Practice Midwife
DX: N39.0 Urinary tract infection, site not specified (principal); N89.8 Other specified noninflammatory disorders of vagina; R82.90 Unspecified abnormal findings in urine; B96.20 Unspecified Escherichia coli [E. coli] as the cause of diseases classified elsewhere; Z97.5 Presence of (intrauterine) contraceptive device
CPT/HCPCS: 81003; 87086; 87088; 87186; 87480; 87510; 87660; 99212

== ENCOUNTER 2022-05-21 08:22 | Outpatient (REF) | payer OTHER, SELFPAY ==
[2022-05-21 08:35] LABS: MANUAL DIFF FLAG NO
[2022-05-21 08:57] LABS: Basophils Percent Auto 0.4 % (0-2); Eosinophils Absolute Auto 0.1 X10*3/uL (0.0-0.4); Eosinophils Percent Auto 0.8 % (0-4); Hemoglobin 14.9 g/dl (12.0-16.0); Imm Gran Abs Auto 0.04 X10*3/uL (0.00-0.03); Imm Gran Pct Auto 0.4 % (0.0-0.4); Lymphocytes Absolute Auto 2.3 X10*3/uL (1.2-4.9); Lymphocytes Percent Auto 21.2 % (20-40); Mean Corpuscular HGB Conc 33.9 g/dl (31.0-35.0); Mean Corpuscular Hemoglobin 31.4 pg (27.0-33.0); Mean Corpuscular Volume 92.6 fL (80.0-98.0); Mean Platelet Volume 10.7 fL (9.4-12.3); Monocytes Absolute Auto 0.9 X10*3/uL (0.1-1.2); Monocytes Percent Auto 8.4 % (2-11); Neutrophils Absolute Auto 7.4 x10*3/uL (2.0-8.3); Neutrophils Percent Auto 68.8 % (45-73); Platelet Count 308 X10*3/uL (160-400); Red Blood Count 4.75 X10*6/uL (4.20-5.50); Red Cell Distribution Width 12.1 % (11.0-16.0); White Blood Count 10.7 X10*3/uL (4.8-10.8)
[2022-05-21 09:42] LABS: Alanine Aminotransferase 15 U/L (0-31); Albumin Level 4.5 g/dL (3.5-5.0); Alkaline Phosphatase 95 U/L (39-117); Anion Gap 13 (12-20); Aspartate Amino Transferase 17 U/L (5-31); Bilirubin Total 0.5 mg/dL (0.0-1.0); Blood Urea Nitrogen 7 mg/dL (9-16); Calcium 9.5 mg/dL (8.4-10.2); Carbon Dioxide 25 mmol/L (22-29); Chloride 104 mmol/L (96-108); Cholesterol 170 mg/dL; Estimated Glomerular Filt Rate > 60; Glucose Fasting 108 mg/dL (60-99); HDL Cholesterol 42 mg/dL; LDL Cholesterol Calculated 102 mg/dl; Potassium 4.4 mmol/L (3.3-5.1); Sodium 138 mmol/L (135-145); Total Protein 7.3 g/dL (6.5-8.0); Triglycerides 130 mg/dL; Vitamin D 25-OH Total 38.7 ng/mL (>30)
[2022-05-21 09:43] LABS: HBc Num1 0.07 S/CO (0.00-0.79); HIV AB/AG Nonreactive (Nonreactive); HIV Num 1 0.07 S/CO (0.00-0.99); Hepatitis B Core Antibody Nonreactive (Nonreactive); ~HepC Num1 0.12 S/CO (0.00-0.79); ~Hepatitis C Antibody Nonreactive (Nonreactive)
[2022-05-21 10:31] LABS: Syphilis Screen Reactive (Nonreactive)
[2022-05-24 10:55] LABS: RPR Quantitative Non-Reactive (Nonreactive); T.Pallidum Particle Agg Test Reactive (Nonreactive)
== END 2022-05-21 08:23 | disposition home or self-care (01) ==
LOC: HO.LAB 08:22
PROVIDERS: Advanced Practice Midwife; PCP Internal Medicine; Visit Provider Internal Medicine
DX: Z00.00 Encounter for general adult medical examination without abnormal findings (principal); Z11.4 Encounter for screening for human immunodeficiency virus [HIV]; Z11.3 Encounter for screening for infections with a predominantly sexual mode of transmission; Z20.2 Contact with and (suspected) exposure to infections with a predominantly sexual mode of transmission; E66.9 Obesity, unspecified; E55.9 Vitamin D deficiency, unspecified
CPT/HCPCS: 36415; 80053; 80061; 82306; 85025; 86592; 86704; 86780; 86803; 87389

== ENCOUNTER → 2022-05-31 13:18 | Outpatient (BNVA) | payer OTHER, SELFPAY | PROVIDERS: PCP Internal Medicine; Referring Provider Internal Medicine; Visit Provider Nurse Practitioner | DX: K21.9 Gastro-esophageal reflux disease without esophagitis (principal); K90.89 Other intestinal malabsorption; R14.0 Abdominal distension (gaseous) | CPT/HCPCS: 99212 ==

== ENCOUNTER 2022-06-06 10:20 | Emergency (ER) | payer OTHER, SELFPAY ==
--- NOTE | ~2022-06-06 | CT_ITS ---
EXAMINATION: CT HEAD WITHOUT CONTRAST CLINICAL INFORMATION: Headache. COMPARISON: 01/17/[address] scan. TECHNIQUE: Contiguous axial imaging was performed from the skull base to vertex without intravenous administration of contrast. Coronal and sagittal reformatted images were obtained. This CT examination was performed using dose optimization techniques as appropriate, variously including the following: *Automated exposure control *Adjustment of mA and/or kV according to patient size (this includes techniques or standardized protocols for targeted exams where dose is matched to indication/reason for exam; i.e. extremities or head) *Use of iterative reconstruction technique DLP: 639 mGy-cm FINDINGS: The cortical sulci are normal. The lateral ventricles are symmetrical. The third and fourth ventricles are in their normal midline position. The basilar and prepontine cisterns are unremarkable. There is no acute intra or extracerebral abnormality. There is no mass effect or midline shift. Sections through the bony calvarium are unremarkable. The paranasal sinuses show mild to moderate mucosal thickening in the ethmoid and sphenoid sinuses. No air-fluid levels. The bony orbits and orbital contents are unremarkable. CT/CT head/brain wo IV con IMPRESSION: No acute intracranial pathology.
[2022-06-06 11:45] VITALS: BP 127/74; PULSE 81; RESP 18; TEMP 36.6; O2SAT 99; BMI 27.8
--- NOTE | 2022-06-06 11:48 | ED_ITS ---
HPI - URI/Sore Throat General Chief Complaint: General Medical <Ninoska Johnson MD - Last Filed: 06/06/22 11:53> Stated Complaint: Head Sinus Pressure <Ninoska Johnson MD - Last Filed: 06/06/22 11:53> Time Seen by Provider: 06/06/22 13:21 <Ninoska Johnson MD - Last Filed: 06/06/22 11:53> Source: patient and pharmaceutical officer <EMMY Vang - Last Filed: 06/06/22 16:51> Mode of arrival: ambulatory <EMMY Vang Last Filed: 06/06/22 16:51> Limitations: no limitations <EMMY Vang Last Filed: 06/06/22 16:51> History of Present Illness HPI Narrative: 46 yo female presenting with Right-sided headache and right-sided ear pain that started yesterday. Patient reports the headache is throbbing in nature in his improved After taking Motrin. She reports her ear feels full in it is tender to touch. She denies any drainage or hearing loss. She reports the pain radiates from the ear to the entire right side of her head. She denies any fever or chills. No neck pain. She did have recent left-sided nose bleed last week. No residual or recurrence bleeding. It was not packed. <EMMY Vang - Last Filed: 06/06/22 16:51> MD elicited complaint: other ( Headache and ear pain) <EMMY Vang Last Filed: 06/06/22 16:51> Onset (ago): day(s) (1) <EMMY Vang - Last Filed: 06/06/22 16:51> Consistency: constant <EMMY Vang Last Filed: 06/06/22 16:51> Severity: moderate <EMMY Vang Last Filed: 06/06/22 16:51> Description of mucous: clear <EMMY Vang Last Filed: 06/06/22 16:51> Able to tolerate fluids by mouth: Yes <EMMY Vang Last Filed: 06/06/22 16:51> Exacerbating factors: nothing <EMMY Vang - Last Filed: 06/06/22 16:51> Relieving factors: NSAID <EMMY Vang - Last Filed: 06/06/22 16:51> Associated symptoms: headache and nasal congestion <EMMY Vang - Last Filed: 06/06/22 16:51> Treatments prior to arrival: none <EMMY Vang - Last Filed: 06/06/22 16:51> Related Data Home Medications: Home Medications Medication Instructions Recorded Confirmed citalopram 40 mg tablet 40 mg PO DAILY 06/27/20 04/10/22 hydroxyzine HCl 25 mg tablet 25 mg PO BID 06/27/20 04/10/22 clonidine HCl 0.1 mg tablet 0.1 mg PO BID 09/01/21 04/10/22 zolpidem 5 mg tablet 5 mg PO BEDTIME PRN 09/01/21 04/10/22 levonorgestrel 20 mcg/24 hours (8 intrauterine 01/31/22 04/10/22 yrs) 52 mg intrauterine device (Mirena) Previous Rx's Medication Instructions Recorded cholecalciferol (vitamin D3) 125 125 mcg PO DAILY 90 days #90 caps 03/27/22 mcg (5,000 unit) capsule folic acid 1 mg tablet 1 mg PO DAILY 90 days #90 tabs 03/27/22 montelukast 10 mg tablet 10 mg PO DAILY #30 tabs 04/25/22 lidocaine 5 % topical patch 1 patch topical DAILY PRN pain #30 05/04/22 (Lidoderm) ea tztstg-[id number]-zhlqoxp 1 cap PO QID 30 days #120 caps 05/31/22 24,000-76,000-120,000 unit capsule,delayed rel (Creon) omeprazole 40 mg capsule,delayed 40 mg PO QPM 30 days #30 caps 05/31/22 release sucralfate 100 mg/mL oral 30 ml PO QAM #420 mL 05/31/22 suspension (Carafate) albuterol sulfate 90 mcg/actuation 1 puff PO Q4-6H PRN for wheezing 06/05/22 aerosol inhaler (ProAir HFA) 30 days #6.7 grams acetaminophen 500 mg tablet 500 mg PO Q6H PRN pain or fever 30 12/07/22 (Tylenol Extra Strength) days #120 tabs azithromycin 250 mg tablet See Rx Instructions PO .COMPLEX #6 06/06/22 (Zithromax Z-Beni) tabs cyanocobalamin (vitamin B-12) 1,000 mcg PO DAILY 90 days #90 tabs 06/06/22 1,000 mcg tablet fluticasone propionate 50 1 spray intranasal DAILY 30 days 06/06/22 mcg/actuation nasal #16 grams spray,suspension (Flonase Allergy Relief) <Ninoska Johnson MD - Last Filed: 06/06/22 11:53> Allergies/Adverse Reactions: Allergies Allergy/AdvReac Type Severity Reaction Status Date / Time Penicillins [PENICILLINS] Allergy Severe ANAPHYLAXIS Verified 06/06/22 11:45 latex [LATEX] Allergy Intermediate RASH Verified 06/06/22 11:45 pollen Allergy Intermediate asthma Uncoded 04/10/22 08:29 <Ninoska Johnson MD - Last Filed: 06/06/22 11:53> Review of Systems Review of Systems: Constitutional: No Fever, + Chills ENT/Mouth: No sore throat, No Rhinorrhea, No Swallowing Difficulty, +Otalgia, No hearing loss, No discharge Eyes: No Eye Pain, No Swelling, No Redness Cardiovascular: No Chest Pain, No SOB Respiratory: No Cough, No Sputum, No Wheezing, No dyspnea Gastrointestinal: No Nausea, No Vomiting, No Diarrhea, No abdominal Pain Musculoskeletal: No joint pain, No Myalgias Skin: No Skin Lesions, No rash Neuro: No Weakness, No Numbness, +Dizziness, + Headache Heme/Lymph: No Bruising, No Lymphadenopathy <EMMY Vang - Last Filed: 06/06/22 16:51> [facility] Past Medical History Medical History: Medical History (Updated 06/06/22 @ 13:50 by EMMY Vang) Abscess Abscess of hip Asthma B12 deficiency Blurry vision Dental root implant present Foot pain Hand numbness Mild recurrent major depression Non-toxic multinodular goiter Obese Shortness of breath Vitamin D deficiency Voice hoarseness <Ninoska Johnson MD - Last Filed: 06/06/22 11:53> Surgical History: Surgical History (Updated 05/31/22 @ 13:45 by PANKAJ Aceves) History of esophagogastroduodenoscopy (EGD) Hx of cholecystectomy Hx of colonoscopy Hx of oral surgery (07/23/18) Hx of tubal ligation S/P cholecystectomy <Ninoska Johnson MD - Last Filed: 06/06/22 11:53> Family History Family History: Family History Father Unknown family medical history Mother Unknown family medical history <Ninoska Johnson MD - Last Filed: 06/06/22 11:53> Social History Social History: Social History Housing: Apartment Alcohol intake: current Alcohol intake frequency: holidays/special occasions only Patient Tobacco Use Status: Current someday Tobacco user Tobacco use type: Cigarette Cigarettes Per Day: 2 e-Cigarette/Vaping Use: Never Used Second Hand Smoke Exposure: No Advance Directives: No Advance Directives Information Provided: Yes service: No Current occupational status: disabled Cognitive needs: Yes (walker/cane) Hearing needs: No Vision needs: Yes (glasses) <Ninoska Johnson MD - Last Filed: 06/06/22 11:53> Physical Exam Vital Signs: Vital Signs: Last Vital Signs Temp 97.8 F 06/06/22 11:45 Pulse 81 06/06/22 11:45 Resp 18 06/06/22 11:45 BP 127/74 06/06/22 11:45 Pulse Ox 99 06/06/22 11:45 O2 Del Method 06/06/22 11:45 BMI result Body Mass Index 27.8 <Ninoska Johnson MD - Last Filed: 06/06/22 11:53> Vital Signs: Last Vital Signs Temp 97.8 F 06/06/22 11:45 Pulse 81 06/06/22 11:45 Resp 18 06/06/22 11:45 BP 127/74 06/06/22 11:45 Pulse Ox 99 06/06/22 11:45 O2 Del Method 06/06/22 11:45 BMI result Body Mass Index 27.8 <EMMY Vang - Last Filed: 06/06/22 16:51> Appearance: Alert. Oriented X3. No acute distress. Eyes: Pupils equal, round and reactive to light. EOMI, no nystagmus ENT: Pharynx normal. Right TM with effusion and erythema, no perforation. Normal appearance of the left TM Neck: Normal inspection. Neck supple. CVS: Normal heart rate and rhythm. Pulses normal. Respiratory: No respiratory distress. Breath sounds normal. Skin: Skin warm and dry. Normal skin color. Normal skin turgor. No rashes. Extremities: No lower extremity edema. Neuro: Oriented X 3. No motor deficit. No sensory deficit. <EMMY Vang - Last Filed: 06/06/22 16:51> Course Course Course Narrative: RME patient complaining of right-sided headache sinus pain fullness ongoing no fever no chills no photophobia. Has a history of migraine headaches as well. No focal weakness. Patient from home. Patient has been having headaches for about 2 days getting worse the last 24 hours <Ninoska Johnson MD - Last Filed: 06/06/22 11:53> Reevaluation(s) Reevaluation #1: CT head normal. H/A improved after motrin. She has erythema and effusion of right TM. no hemotympanium. labs normal. will treat with po abx. stable for d/c home. <EMMY Vang - Last Filed: 06/06/22 16:51> Medications Administered Discontinued Medications Generic Name Dose Route Start Last Admin Trade Name Freq PRN Reason Stop Dose Admin Ibuprofen 400 mg 06/06/22 11:54 06/06/22 13:08 Ibuprofen 400 Mg Tablet PO 06/06/22 11:55 400 mg ONCE ONE Administration <Ninoska Johnson MD - Last Filed: 06/06/22 11:53> Medications Administered Discontinued Medications Generic Name Dose Route Start Last Admin Trade Name Freq PRN Reason Stop Dose Admin Ibuprofen 400 mg 06/06/22 11:54 06/06/22 13:08 Ibuprofen 400 Mg Tablet PO 06/06/22 11:55 400 mg ONCE ONE Administration <EMMY Vang - Last Filed: 06/06/22 16:51> Discharge Plan Discharge Clinical Impression: Acute otitis media with effusion <Ninoska Johnson MD - Last Filed: 06/06/22 11:53> Patient Disposition: Home, Self-Care <Ninoska Johnson MD - Last Filed: 06/06/22 11:53> Instructions: Ear Infection (ED) <Ninoska Johnson MD - Last Filed: 06/06/22 11:53> Additional Instructions: You tested negative for COVID, flu, RSV. Your CT scan of your head was unremarkable. Your lab work was unremarkable. Your exam showed fluid behind your ear drum, take the prescribed antibiotics for this. If you have ongoing symptoms recommend following up with nuclear physics professor, name and number below. Gato negativo para COVID, gripe, RSV. Peña tomograf?a computarizada de peña sangeeta no tuvo nada especial. Peña trabajo de laboratorio fue normal. Peña examen mostr? l?quido detr?s de peña t?mpano, tome los antibi?ticos recetados para esto. Si tiene s?ntomas continuos, recomiende hacer un seguimiento con un otorrinola ring?logo, nombre y n?evy a continuaci?n. <Ninoska Johnson MD - Last Filed: 06/06/22 11:53> Prescriptions: New azithromycin [Zithromax Z-Beni] 250 mg tablet See Rx Instructions .ROUTE .COMPLEX Qty: 6 0RF Rx Instructions: take 500 mg today (day 1), then 250 mg for 4 days (days 2-5) No Action folic acid 1 mg tablet 1 mg PO DAILY 90 Days Qty: 90 1RF cholecalciferol (vitamin D3) 125 mcg (5,000 unit) capsule 125 mcg PO DAILY 90 Days Qty: 90 1RF montelukast 10 mg tablet 10 mg PO DAILY Qty: 30 6RF lidocaine [Lidoderm] 5 % adhesive patch,medicated 1 patch topical DAILY MDD remove after 12 hours PRN (Reason: pain) Qty: 30 0RF Rx Instructions: leave on most painful area for up to 12 hrs albuterol sulfate [ProAir HFA] 90 mcg/actuation HFA aerosol inhaler 1 puff PO Q4-6H PRN (Reason: for wheezing) 30 Days Qty: 6.7 0RF cyanocobalamin (vitamin B-12) 1,000 mcg tablet 1,000 mcg PO DAILY 90 Days Qty: 90 1RF fluticasone propionate [Flonase Allergy Relief] 50 mcg/actuation spray,suspension 1 spray intranasal DAILY 30 Days Qty: 16 1RF Rx Instructions: administer into each nostril acetaminophen [Tylenol Extra Strength] 500 mg tablet 500 mg PO Q6H PRN (Reason: pain or fever) 30 Days Qty: 120 1RF citalopram 40 mg tablet 40 mg PO DAILY hydroxyzine HCl 25 mg tablet 25 mg PO BID clonidine HCl 0.1 mg tablet 0.1 mg PO BID Mirena 20 mcg/24 hours (7 yrs) 52 mg intrauterine device intrauterine omeprazole 40 mg capsule,delayed release(DR/EC) 40 mg PO QPM 30 Days Qty: 30 6RF sucralfate [Carafate] 100 mg/mL suspension 30 ml PO QAM Qty: 420 6RF Rx Instructions: Must wait 2 hours before taking any other medications. Creon 24,000-76,000 -120,000 unit capsule,delayed release(DR/EC) 1 cap PO QID 30 Days Qty: 120 6RF Rx Instructions: administer with meals and/or snacks zolpidem 5 mg tablet 5 mg PO BEDTIME PRN <Ninoska Johnson MD - Last Filed: 06/06/22 11:53> Referrals: Bull Elizondo [Physician] - <Ninoska Johnson MD - Last Filed: 06/06/22 11:53> Interventions: ED Discharge Assessment Last Done: 06/06/22 14:04 <Ninoska Johnson MD - Last Filed: 06/06/22 11:53> Discharge Date/Time: 06/06/22 14:05 <Ninoska Johnson MD - Last Filed: 06/06/22 11:53> Print Language: Burkinan <Ninoska Johnson MD - Last Filed: 06/06/22 11:53>
[2022-06-06 12:28] LABS: MANUAL DIFF FLAG NO
[2022-06-06 12:29] LABS: Basophils Percent Auto 0.4 % (0-2); Eosinophils Absolute Auto 0.2 X10*3/uL (0.0-0.4); Eosinophils Percent Auto 2.4 % (0-4); Hematocrit 42.4 % (37.0-47.0); Hemoglobin 14.1 g/dl (12.0-16.0); Imm Gran Abs Auto 0.02 X10*3/uL (0.00-0.03); Imm Gran Pct Auto 0.2 % (0.0-0.4); Lymphocytes Absolute Auto 2.8 X10*3/uL (1.2-4.9); Lymphocytes Percent Auto 30.7 % (20-40); Mean Corpuscular HGB Conc 33.3 g/dl (31.0-35.0); Mean Corpuscular Hemoglobin 30.3 pg (27.0-33.0); Mean Platelet Volume 10.1 fL (9.4-12.3); Monocytes Absolute Auto 0.8 X10*3/uL (0.1-1.2); Monocytes Percent Auto 8.3 % (2-11); Neutrophils Absolute Auto 5.3 x10*3/uL (2.0-8.3); Platelet Count 309 X10*3/uL (160-400); Red Blood Count 4.66 X10*6/uL (4.20-5.50); Red Cell Distribution Width 12.2 % (11.0-16.0); White Blood Count 9.1 X10*3/uL (4.8-10.8)
[2022-06-06 12:43] LABS: Anion Gap 11 (12-20); Blood Urea Nitrogen 10 mg/dL (9-16); Calcium 9.4 mg/dL (8.4-10.2); Carbon Dioxide 26 mmol/L (22-29); Chloride 104 mmol/L (96-108); Creatinine Clr Calc Pharmacy 79.1; Estimated Glomerular Filt Rate > 60; Glucose Random 96 mg/dL (60-115); Potassium 4.4 mmol/L (3.3-5.1); Sodium 137 mmol/L (135-145)
[2022-06-06 12:50] LABS: HCG Quantitative < 2 mIU/mL
[2022-06-06] MEDS: Ibuprofen 400 MG TABLET PO (13:08)
[2022-06-06 13:22] LABS: Influenza A PCR NEGATIVE (Negative); Influenza B PCR NEGATIVE (Negative); Resp Syncy Virus RNA Qual PCR NEGATIVE (Negative); SARS COV2 PCR INHOUSE NEGATIVE (Negative)
== END 2022-06-06 14:05 | disposition home or self-care (01) ==
PROVIDERS: Emergency Medicine Emergency Medical Services; Physician Assistant Medical; Emergency Provider Emergency Medicine Emergency Medical Services; PCP Internal Medicine
DX: H66.91 Otitis media, unspecified, right ear (principal); R51.9 Headache, unspecified; H92.01 Otalgia, right ear; F17.210 Nicotine dependence, cigarettes, uncomplicated; Z20.822 Contact with and (suspected) exposure to COVID-19; Z71.6 Tobacco abuse counseling; Z79.899 Other long term (current) drug therapy
CPT/HCPCS: 0241U; 36415; 70450; 80048; 84702; 85025; 99283; 99284

== ENCOUNTER 2022-06-08 08:24 | Outpatient (REF) | payer OTHER, SELFPAY ==
[2022-06-08 10:00] LABS: Thyroid Stimulating Hormone 2.36 uIU/mL (0.32-4.0)
== END 2022-06-08 08:25 | disposition home or self-care (01) ==
LOC: HO.LAB 08:24
PROVIDERS: PCP Internal Medicine; Visit Provider Internal Medicine
DX: E04.2 Nontoxic multinodular goiter (principal)
CPT/HCPCS: 36415; 84443

== ENCOUNTER 2022-08-01 08:59 | Outpatient (REF) | payer OTHER, SELFPAY ==
--- NOTE | ~2022-08-01 | XR_ITS ---
EXAMINATION: XR ABDOMEN COMPLETE CLINICAL INDICATION: Abdominal pain COMPARISON: None TECHNIQUE: 2 views of the abdomen. FINDINGS: There is scattered stool and gas seen in colon without distention. The small bowel loops are normal caliber. There is no organomegaly. There is IUD in pelvis. No gross bony abnormality. XR/XR abdomen min 2V IMPRESSION: Mild constipation. No acute process seen.
== END 2022-08-01 09:00 | disposition home or self-care (01) ==
LOC: HO.XRAY 08:59
PROVIDERS: PCP Internal Medicine; Visit Provider Nurse Practitioner
DX: K90.89 Other intestinal malabsorption (principal); K21.9 Gastro-esophageal reflux disease without esophagitis; R14.0 Abdominal distension (gaseous); R10.9 Unspecified abdominal pain; F41.8 Other specified anxiety disorders
CPT/HCPCS: 74019; 99212

== ENCOUNTER 2022-09-24 13:25 | Outpatient (REF) | payer OTHER, SELFPAY ==
--- NOTE | ~2022-09-24 | MM_ITS ---
EXAMINATION: MM SCREENING DIGITAL BREAST TOMOSYNTHESIS, BILATERAL CLINICAL INFORMATION: Screening. Asymptomatic. The lifetime risk of breast cancer based on the Tyrer-Cuzick Model is 7%. COMPARISON: Mammography: 05/02/2021, 05/19/2019, 04/22/2018, 07/10/2016 TECHNIQUE: Digital breast tomosynthesis is performed in both the craniocaudal and mediolateral oblique views along with computer-aided detection (CAD). Synthesized 2D images are generated from the tomosynthesis. FINDINGS: There are scattered areas of fibroglandular density (ACR BI-RADS breast composition Category b). Right CC view has oval parenchymal asymmetry mid outer quadrant without definite asymmetry on MLO view. This could represent incompletely compressed glandular tissue or summation artifact. Patient will be recalled for additional imaging. The remainder of the bilateral breasts show no significant mass or architectural abnormality. There are scattered benign round and predominantly dermal calcifications again seen predominantly inner quadrants. The axilla are unremarkable. MM/MM tomosynthesis screening BI IMPRESSION: Right: -Oval asymmetry mid outer quadrant on CC view, possibly incompletely compressed glandular tissue or summation artifact. Left: -No mammographic evidence of malignancy. ASSESSMENT: BI-RADS 0: Incomplete - Need Additional Imaging Evaluation RECOMMENDATION: 1. Additional views right breast (rolled CC x2, standard ML). 2. Targeted ultrasound if warranted after review of the additional views. 3. Radiology department staff will contact the patient for additional imaging. This patient's information was entered into a reminder system with a target due date for their next mammogram.
== END 2022-09-24 13:26 | disposition home or self-care (01) ==
LOC: HO.MAMMO 13:25
PROVIDERS: Visit Provider Internal Medicine
DX: Z12.31 Encounter for screening mammogram for malignant neoplasm of breast (principal)
CPT/HCPCS: 77063; 77067

== ENCOUNTER 2022-10-22 13:02 | Outpatient (REF) | payer OTHER, SELFPAY ==
--- NOTE | ~2022-10-22 | MM_ITS ---
EXAMINATION: MM DIAGNOSTIC DIGITAL BREAST TOMOSYNTHESIS, RIGHT US DIAGNOSTIC ULTRASOUND BREAST, RIGHT CLINICAL INFORMATION: Recall from screening for oval asymmetry mid outer right breast, suspect incompletely compressed glandular tissue or summation artifact. COMPARISON: Multiple prior mammography exams, most recent 09/24/2022. TECHNIQUE: Digital breast tomosynthesis is performed. 2D images are generated from the tomosynthesis. The following views are obtained: Rolled CC x2, ML. Ultrasound right breast is targeted to the upper outer quadrant using grayscale imaging and color Doppler without and with harmonics. FINDINGS: There are scattered areas of fibroglandular density (ACR BI-RADS breast composition Category b). The additional views show scattered benign fibroglandular asymmetries similar to prior studies without underlying mass, developing density, or architectural abnormality. Ultrasound demonstrates no cystic or solid mass or architectural abnormality. No focal duct ectasia. No skin thickening or edema tracking in soft tissue planes. Results are discussed with the patient at time of visit, using an social media sr strategy manager. MM/MM tomosynthesis added views R IMPRESSION: -Additional views show no significant changes from prior studies. -Unremarkable right breast ultrasound. ASSESSMENT: BI-RADS 1: Negative RECOMMENDATION: Routine annual mammography screening. This patient's information was entered into a reminder system with a target due date for their next mammogram.
== END 2022-10-22 13:03 | disposition home or self-care (01) ==
LOC: HO.MAMMO 13:02
PROVIDERS: PCP Internal Medicine; Visit Provider Internal Medicine
DX: N64.89 Other specified disorders of breast (principal)
CPT/HCPCS: 76642; 77061; 77065

== ENCOUNTER 2023-04-11 14:26 | Outpatient (AMB) | payer OTHER, SELFPAY ==
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
[2023-04-11 14:30] VITALS: BP 122/70; PULSE 96; O2SAT 97; BMI 25.0
== END 2023-04-11 15:28 | disposition home or self-care (01) ==
PROVIDERS: Visit Provider Internal Medicine
DX: Z00.00 Encounter for general adult medical examination without abnormal findings (principal); F33.0 Major depressive disorder, recurrent, mild
CPT/HCPCS: 99396